=== PATIENT | male | born 1985 | race Caucasian/White ===

== ENCOUNTER 2016-12-08 21:15 | Emergency (ER) | payer SELFPAY ==
[~2016-12-08] VITALS: Ht 188 cm; Wt 90.7 kg
[2016-12-08 21:41] VITALS: BP 126/87
== END 2016-12-09 01:10 | disposition left against medical advice (07) ==
LOC: ER 21:15
DX: N50.812 Left testicular pain (principal); N50.811 Right testicular pain; Z53.21 Procedure and treatment not carried out due to patient leaving prior to being seen by health care provider
CPT/HCPCS: 76870